=== PATIENT | male | born 1975 | race Caucasian/White ===

== ENCOUNTER 2019-05-19 10:07 | Inpatient (IN) | payer OTHER ==
--- NOTE | 2019-05-19 10:16 | PDOC ---
History of Present Illness - General Chief Complaint: Chest Pain Stated Complaint: CHEST PAIN Time Seen by Provider: 05/19/19 10:14 - History of Present Illness Initial Comments: 05/19/19 10:30 Pt is a 43 y/o M with a significant PMH of HTN, CAD (s/p 1 stent), HLD who presents to our E.D at the behest of his Manager Interventional. Pt endorses he has been experiencing chest pain since this past . Chest pain arose suddenly as is described as sharp, 6/10 in severity, and intermittent. Pt was not exerting himself at time of onset. Pain radiates to his back. Pt endorses he took an extra Ranexa for the pain; this did not mitigate his symptoms. Denies headache, blurry vision, nausea/vomiting, shortness of breath, numbness or tingling. Past History - Past Medical History Allergies/Adverse Reactions: Allergies Allergy/AdvReac Type Severity Reaction Status Date / Time No Known Drug Allergies Allergy Verified 05/19/19 10:12 Home Medications: Ambulatory Orders Ranolazine [Ranexa -] 1,000 mg PO BID #0 tab 04/23/13 Atorvastatin Ca [Lipitor] 20 mg PO HS 07/30/13 Metoprolol Succinate [Toprol XL -] 50 mg PO DAILY 07/30/13 Aspirin [ASA -] 81 mg PO DAILY 06/01/14 Sulfamethoxazole/Trimethoprim [Bactrim *Ds*] 1 tab PO BID #14 tablet 08/23/15 Cardiac Disorders: Yes ([place] 2011, STENT S, CAD) COPD: No HTN: Yes Hypercholesterolemia: Yes - Surgical History Cardiac Surgery: Yes (Stents) - Immunization History Immunization Up to Date: Yes - Psycho Social/Smoking Cessation Hx Smoking Status: Yes Smoking History: Current every day smoker Have you smoked in the past 12 months: Yes Number of Cigarettes Smoked Daily: 8 If you are a former smoker, when did you quit?: 2012 Cigars Per Day: 0 Information on smoking cessation initiated: No 'Breaking Loose' booklet given: 04/22/13 Hx Alcohol Use: No Drug/Substance Use Hx: No Substance Use Type: None Hx Substance Use Treatment: No *Physical Exam - Vital Signs Last Vital Signs Temp Pulse Resp BP Pulse Ox 98.3 F 74 18 156/100 99 05/19/19 10:13 05/19/19 10:13 05/19/19 10:13 05/19/19 10:13 05/19/19 10:13 Heart Score/ECG Review - History History: Slightly suspicious - Electrocardiogram EKG: Normal - Age Age: </= 45 - Risk Factors Risk Factors Heart Score: Yes Hx Hypercholesterolemia, Yes Hx Hypertension, Yes Smoking History, No Positive family hx of cardiac disease, Yes Hx Obesity Based on the list above the patient has:: >/=3 risk factors or Hx atherosclerotic disease - ECG Impressions Comment:: 05/19/19 10:18 nl sinus rythm, nl intervals, rate 73, QTc 436, no ST-T wave abnormalities. ED Treatment Course - LABORATORY CBC & Chemistry Diagram: 05/19/19 10:19 05/19/19 10:19 - ADDITIONAL ORDERS Additional order review: Laboratory Results 05/19/19 05/19/19 10:19 10:19 PT with INR 10.90 INR 0.92 PTT (Actin FS) 34.4 Sodium 136 Potassium 4.6 Chloride 105 Carbon Dioxide 27 Anion Gap 4 L BUN 15.5 Creatinine 0.9 Est GFR (CKD-EPI)AfAm 119.13 Est GFR (CKD-EPI)NonAf 102.79 Random Glucose 97 Calcium 9.7 Total Bilirubin 0.7 AST 26 ALT 41 Alkaline Phosphatase 61 Creatine Kinase 141 Troponin I < 0.02 Total Protein 7.4 Albumin 4.2 Lipase 178 05/19/19 10:19 RBC 6.03 H MCV 84.4 MCHC 34.2 RDW 12.6 MPV 7.7 Neutrophils % 55.7 Lymphocytes % 29.7 Monocytes % 5.9 Eosinophils % 8.1 H D Basophils % 0.6 - RADIOLOGY Radiology Studies Ordered: Category Date Time Status CHEST X-RAY PORTABLE* [RAD] Stat Radiology 05/19/19 10:29 Completed Medical Decision Making - Medical Decision Making 05/19/19 10:27 DDx includes bot not limited to stable angina, M.I, GERD, Aortic Dissection, pancreatitis Will order cbc, cardiac profile, cmp, lipase, cxr 05/19/19 12:26 Pt admitted to tele obs. Discharge - Follow up/Referral Referrals: Joshua Benjamin MD [Primary Care Provider] - - Patient Discharge Instructions - Post Discharge Activity
[2019-05-19 10:39] LABS: BASO % 0.6 % (0-2.0); EOS % 8.1 % (0-4.5); HEMATOCRIT 50.9 % (35.4-49); HEMOGLOBIN 17.4 GM/dL (11.7-16.9); LYMPH % 29.7 % (8-40); MCH 28.8 pg (25.7-33.7); MCHC 34.2 g/dl (32.0-35.9); MEAN CELL VOLUME 84.4 fl (80-96); MEAN PLT VOLUME 7.7 fl (7.5-11.1); MONO % 5.9 % (3.8-10.2); NEUT % 55.7 % (42.8-82.8); PLATELET COUNT 273 K/MM3 (134-434); RBC 6.03 M/mm3 (4.00-5.60); RDW 12.6 % (11.9-15.9)
--- NOTE | 2019-05-19 10:39 | CON.CARD ---
Consult Consult Specialty:: Cardiology Referred by:: Dr. Benjamin Reason for Consultation:: chest pain - History of Present Illness Chief Complaint: chest pain History of Present Illness: 43year old man with a history of HTN, HLD, CAD s/p [place] 05/2012 s/p VALORIE Pastrana ( [place]), cardiac cath 08/2014 showed patent RCA stent and non-obstructive mLAD disease, pt with chronicintermittentatypical chest pain,anxiety, L arm numbness. Pt came in today for evaluation of chest pain. States he has had chest pain on and off for the past 3 days. He went to his PMD's office yesterday and saw the SEISMOGRAPH SUPERVISOR or PA and was told his EKG looked different than in the past and that he should go to the ER. He decided not to go to the ER and attempted to go to work today but was told he could not work and must be evaluated further as he was still having chest pain. In the office today states he is still having left sided chest pain although not as severe as previously. States he is under a lot of stress recently at home and feels this is playing a role. - History Source History Provided By: Patient, Medical Record Limitations to Obtaining History: No Limitations - Past Medical History Cardio/Vascular: Yes: CAD, HTN, Hyperlipdemia, [place] - Past Surgical History Past Surgical History: Yes: Stent - Alcohol/Substance Use Hx Alcohol Use: No - Smoking History Smoking history: Current every day smoker Have you smoked in the past 12 months: Yes Aproximately how many cigarettes per day: 8 If you are a former smoker, when did you quit?: 2012 - Social History ADL: Independent History of Recent Travel: No Home Medications - Allergies Allergies/Adverse Reactions: Allergies Allergy/AdvReac Type Severity Reaction Status Date / Time No Known Drug Allergies Allergy Verified 05/19/19 10:12 - Home Medications Home Medications: Ambulatory Orders Ranolazine [Ranexa -] 1,000 mg PO BID #0 tab 04/23/13 Atorvastatin Ca [Lipitor] 20 mg PO HS 07/30/13 Metoprolol Succinate [Toprol XL -] 50 mg PO DAILY 07/30/13 Aspirin [ASA -] 81 mg PO DAILY 06/01/14 Sulfamethoxazole/Trimethoprim [Bactrim *Ds*] 1 tab PO BID #14 tablet 08/23/15 Review of Systems - Review of Systems Constitutional: denies: No Symptoms, Chills, Diaphoresis, Fever, Lethargy, Loss of Appetite, Malaise, Night Sweats, Unintentional Wgt. Loss, Weakness, Other Eyes: denies: No Symptoms, Blind Spots, Blurred Vision, Double Vision, Eye Pain , Floaters, Photophobia, Recent Change in Vision, Other HENT: denies: No Symptoms, Difficult Swallowing, Ear Discharge, Ear Pain, Epistaxis, Gingival Bleeding, Hearing Loss, Mouth Swelling, Nasal Congestion, Ocular Prosthesis, Throat Pain, Toothache, Ringing in Ears, Other Neck: denies: No Symptoms, Decreased ROM, Lumps, Pain on Movement, Stiffness, Swollen Glands, Tenderness, Other Cardiovascular: reports: Chest Pain. denies: No Symptoms, Edema, Palpitations, Shortness of Breath, Other Respiratory: denies: No Symptoms, Cough, Exercise Intolerance, Hemoptysis, Orthopnea, PND, Snoring, SOB, SOB on Exertion, Wheezing, Other Gastrointestinal: denies: No Symptoms, Abdominal Pain, Bloating, Constipation, Diarrhea, Dysphagia, Indigestion, Melena, Nausea, Rectal Bleeding, Vomiting, Vomiting Blood, Other Genitourinary: denies: No Symptoms, Burning, Discharge, Dysuria, Flank Pain, Frequency, Hematuria, Incontinence, Lesions, Menses, Pain, Testicular Mass, Testicular Pain, Testicular Swelling, Urgency, Vaginal Bleeding, Other Breasts: denies: No Symptoms Reported, See HPI, Breast Implants, Discharge from Nipple, Lumps, Pain, Skin Changes, Other Musculoskeletal: denies: No Symptoms, Back Pain, Crepitus, Decreased ROM, Extremity Pain, Joint Pain, Joint Swelling, Muscle Pain, Muscle Cramps, Muscle Weakness, Other Integumentary: denies: No Symptoms, Blister, Bruising, Change in Color, Eczema, Erythema, Incision, Lesions, Lump, Pallor, Pruritis, Rash, Wound, Other Neurological: denies: No Symptoms, Change in LOC, Change in Speech, Confusion, Dizziness, Headache, Incoordination, Numbness, Parasthesia, Pre-Existing Deficit , Seizure, Syncope, Tremors, Unsteady Gait, Weakness, Other Endocrine: denies: No Symptoms, Excessive Sweating, Flushing, Increased Hunger, Increased Thirst, Intolerance to Cold, Intolerance to Heat, Unexplained Weight Gain, Unexplained Weight Loss, Other Hematology/Lymphatic: denies: No Symptoms, Easily Bruised, Excessive Bleeding, Swollen Glands, Other Psychiatric: denies: No Symptoms, Altered Sleep Pattern, Anxiety, Depression, Hallucinations, Panic, Paranoia, Suicidal, Other - Risk Factors Known Risk Factors: Yes: Hypercholesterolemia, Hypertension, Prior [place] /Emb Stroke Vital Signs: Vital Signs Temperature 98.3 F 05/19/19 10:13 Pulse Rate 74 05/19/19 10:13 Respiratory Rate 18 05/19/19 10:13 Blood Pressure 156/100 05/19/19 10:13 O2 Sat by Pulse Oximetry (%) 99 05/19/19 10:13 Constitutional: Yes: No Distress, Calm Eyes: Yes: Conjunctiva Clear, EOM Intact HENT: Yes: Atraumatic, Normocephalic Neck: Yes: Supple, Trachea Midline Respiratory: Yes: Regular, CTA Bilaterally. No: Rales, Rhonchi, SOB, Wheezes Gastrointestinal: Yes: Normal Bowel Sounds, Soft. No: Distention, Tenderness Cardiovascular: Yes: Regular Rate and Rhythm. No: Bradycardia, Tachycardia, Pulse Irregular, Gallop, Rub, Varicosities JVD: No Carotid Bruit: No PMI: Non-Displaced Heart Sounds: Yes: S1, S2. No: Split S2, S3, S4, Clicks, Gallop, Rub, Bruit Murmur: No: Systolic Murmur, Diastolic Murmur Musculoskeletal: Yes: WNL Extremities: Yes: WNL Edema: No Peripheral Pulses WNL: Yes Peripheral Pulses: 2+ Left Doralis Pedis, 2+ Right Dorsalis Pedis Neurological: Yes: Alert, Oriented Psychiatric: Yes: Alert, Oriented - Other Data pending Echo: Pending Imaging - Results EKG: Report Reviewed, Image Reviewed Other: Report Reviewed, Image Reviewed Assessment/Plan Chest pain -check ekg, cardiac enzymes -echo and plan for nuclear stress tests if cardiac enzymes wnl CAD-h/o [place] 2011 s/p PCI with VALORIE RCA -repeat cath 2014 for atypical symptoms showed no sig progression of disease -cont ASA 81mg daily, statin, metoprolol -cont ranexa if needed for anti-anginal therapy
[2019-05-19 10:53] LABS: INR 0.92 (0.83-1.09); PROTHROMBIN TIME (PATIENT) 10.9 SEC (9.7-13.0)
[2019-05-19 10:55] LABS: ACTIVATED PTT 34.4 SECONDS (25.2-36.5)
[2019-05-19 11:32] LABS: ALBUMIN 4.2 g/dl (3.4-5.0); ALK PHOS 61 U/L (45-117); ANION GAP 4 MMOL/L (8-16); BILIRUBIN,TOTAL 0.7 mg/dL (0.2-1); BLOOD UREA NITROGEN 15.5 mg/dL (7-18); CALCIUM 9.7 mg/dL (8.5-10.1); CHLORIDE 105 mmol/L (98-107); CO2 27 mmol/L (21-32); CREATININE 0.9 mg/dL (0.55-1.3); GLUCOSE,RANDOM 97 mg/dL (74-106); LIPASE 178 U/L (73-393); POTASSIUM 4.6 mmol/L (3.5-5.1); SGOT/AST 26 U/L (15-37); SGPT/ALT 41 U/L (13-61); SODIUM 136 mmol/L (136-145); TOT PROT 7.4 g/dl (6.4-8.2)
--- NOTE | 2019-05-19 12:33 | ECHO ---
Version: 1 Name: ELSA FAIRBANKS Exam: Adult Echocardiogram Study Date: 05/19/2019, 11:00 AM Age: 43 Years MMode/2D Measurements & Calculations IVSd: 0.88 cm LVIDs: 3.3 cm LVIDd: 5.2 cm LVPWd: 0.92 cm ACS: 1.87 cm Ao root diam: 3.5 cm LA dimension: 3.0 cm Doppler Measurements & Calculations MV E max fernando: 70.3 cm/sec Med E/e': 11.2 MV A max fernando: 77.4 cm/sec Med Peak E' Fernando: 6.3 cm/sec MV E/A: 0.91 Lat E/e': 7.8 Lat Peak E' Fernando: 9.0 cm/sec Ao max P.5 mmHg Ao V2 max: 94.1 cm/sec Left Ventricle There is mild concentric left ventricular hypertrophy. Left ventricular systolic function is normal. Ejection Fraction = 55-60%. The transmitral spectral Doppler flow pattern is normal for age. Right Ventricle The right ventricle is normal in size and function. Atria Normal left and right atrial size and function. Mitral Valve There is mild mitral annular calcification. Tricuspid Valve The tricuspid valve is normal in structure and function. There was insufficient TR detected to calcu late RV systolic pressure. Aortic Valve The aortic valve is normal in structure and function. Pulmonic Valve The pulmonic valve is not well seen, but is grossly normal. Great Vessels The aortic root is normal size. Pericardium/Pleura There is no pericardial effusion. Summary Statements There is mild concentric left ventricular hypertrophy. Left ventricular systolic function is normal. Ejection Fraction = 55-60%. The right ventricle is normal in size and function. Normal left and right atrial size and function. The aortic valve is normal in structure and function. There is mild mitral annular calcification. MD Yvonne Peters05/19/2019, 12:33 PM Ordering Physician: Natanael Echols Performed By: Meghann Garsia
--- NOTE | 2019-05-19 12:36 | PDOC ---
Documentation entered by Desirae Knott SCRIBE, acting as scribe for Luis Bautista MD. Luis Bautista MD: This documentation has been prepared by the juan, Desirae Knott SCRIBE, under my direction and personally reviewed by me in its entirety. I confirm that the documentation accurately reflects all work, treatment, procedures, and medical decision making performed by me. Attending Attestation - Resident Resident Name: Rayshawn Machuca - ED Attending Attestation I have performed the following: I have examined & evaluated the patient, The case was reviewed & discussed with the resident, I agree w/resident's findings & plan, Exceptions are as noted - HPI HPI: 05/19/19 10:48 The patient is a 43 year old male with a significant PMH of HTN, HLD, CAD s/p [place] 05/2012 s/p VALORIE dRCA ([place]), cardiac cath 08/2014 who presents to the emergency department advised by marketing information manager for chest pain x5days, patient notes his chest pain is intermittent, stabbing in the left side, the last episode of chest pain was on Saturday. The patient describes his CP as nonradiating, sharp, intermittent, 6/10, radiating to his back. There is no worsening on exertion . pt notes he took an extra Ranexa, with no relief of symptoms. Patient denies any alleviating or exacerbating factors. The patient denies shortness of breath, headache and dizziness. Denies fever, chills, cough, nausea, vomiting, diarrhea and constipation. Denies dysuria, frequency, urgency and hematuria. Allergies: NKDA Elevator Operator Freight: Dr. Echols PMD: Vadim - Physicial Exam PE: 05/19/19 10:49 GENERAL: The patient is awake, alert, and fully oriented, Nontoxic - in no acute distress. HEAD: Normocephalic, atraumatic. EYES: extraocular movements intact, sclera anicteric, conjunctiva clear. ENT: Normal voice, Moist mucous membranes. NECK: Normal range of motion, supple without lymphadenopathy, JVD, or masses. LUNGS: Breath sounds equal, clear to auscultation bilaterally. No wheezes, no crackles, no rales. HEART: Regular rate and rhythm, normal S1 and S2 without murmur, rub or gallop. ABDOMEN: Soft, nontender, normoactive bowel sounds. No guarding, no rebound. No masses. EXTREMITIES: Normal range of motion, no edema. No clubbing or cyanosis. No cords, erythema, or tenderness. NEUROLOGICAL: No facial asymmetry, Normal speech, normal gait. PSYCH: Normal mood, normal affect. SKIN: Warm, Dry, normal turgor, no rashes or lesions noted. - Medical Decision Making 05/19/19 14:03 43-year-old gentleman history of CAD status post PCI with 1 stent presenting with atypical chest pain. Last episode episode of chest pain was on Saturday patient is currently asymptomatic. Syndrome by PMD for further evaluation/risk stratification EKG unremarkable here without signs of [place] Heart Score/ECG Review - ECG Impressions Comment:: 05/19/19 14:29 Twelve-lead EKG was performed and reviewed by me. There is normal sinus rhythm with a normal rate. Rate of 73 The axis is normal. The intervals are normal. There is normal R wave progression There are no ST or T wave abnormalities. Impression: Normal twelve-lead EKG
--- NOTE | 2019-05-19 13:21 | EKG ---
Test Reason : Blood Pressure : / mmHG Vent. Rate : 073 BPM Atrial Rate : 073 BPM P-R Int : 166 ms QRS Dur : 106 ms QT Int : 396 ms P-R-T Axes : 061 -27 029 degrees QTc Int : 436 ms POOR DATA QUALITY, INTERPRETATION MAY BE ADVERSELY AFFECTED NORMAL SINUS RHYTHM NORMAL ECG WHEN COMPARED WITH ECG OF 17-MAY-2015 09:54, NO SIGNIFICANT CHANGE WAS FOUND Confirmed by Genaro Darden ([id number]) on 05/19/2019 1:21:06 PM Referred By: Confirmed By:Genaro Darden
--- NOTE | 2019-05-19 15:41 | HP ---
Admitting History and Physical - Primary Care Physician PCP: Joshua Benjamin - Admission Chief Complaint: Chest pain History of Present Illness: Patient is a 43 y/o male with past medical history of HTN, HLD, CAD s/p [place] 2011. Patient presented to ER with complaints of chest pain. He was seen in PCP offiice yesterday for chest pain and instructed by FRUIT HARVESTER to come to ER due to EKG changes. Patient decided to go home because he was not experiencing chest pain and went to work this morning and instructed by job to come to ER for evaluation before returning to work. On examination patient complain of intermittent L sided chest pain, denies SOB or dizziness. History Source: Patient Limitations to Obtaining History: No Limitations - Past Medical History Cardiovascular: Yes: CAD, HTN, Hyperlipdemia, [place] - Past Surgical History Past Surgical History: Yes: Stent - Smoking History Smoking history: Current every day smoker Have you smoked in the past 12 months: Yes Aproximately how many cigarettes per day: 8 If you are a former smoker, when did you quit?: 2012 - Alcohol/Substance Use Hx Alcohol Use: No - Social History ADL: Independent History of Recent Travel: No Home Medications - Allergies Allergies/Adverse Reactions: Allergies Allergy/AdvReac Type Severity Reaction Status Date / Time No Known Drug Allergies Allergy Verified 05/19/19 10:12 - Home Medications Home Medications: Ambulatory Orders Ranolazine [Ranexa -] 1,000 mg PO BID #0 tab 04/23/13 Atorvastatin Ca [Lipitor] 20 mg PO HS 07/30/13 Metoprolol Succinate [Toprol XL -] 50 mg PO DAILY 07/30/13 Aspirin [ASA -] 81 mg PO DAILY 06/01/14 Review of Systems - Review of Systems Constitutional: reports: No Symptoms Eyes: reports: No Symptoms HENT: reports: No Symptoms Neck: reports: No Symptoms Cardiovascular: reports: Chest Pain Respiratory: reports: No Symptoms Gastrointestinal: reports: No Symptoms Genitourinary: reports: No Symptoms Breasts: reports: No Symptoms Reported Musculoskeletal: reports: No Symptoms Integumentary: reports: No Symptoms Neurological: reports: No Symptoms Endocrine: reports: No Symptoms Hematology/Lymphatic: reports: No Symptoms Psychiatric: reports: No Symptoms Physical Examination Vital Signs: Vital Signs Temperature 98.3 F 05/19/19 10:13 Pulse Rate 74 05/19/19 10:13 Respiratory Rate 18 05/19/19 10:13 Blood Pressure 156/100 05/19/19 10:13 O2 Sat by Pulse Oximetry (%) 99 05/19/19 10:13 Constitutional: Yes: No Distress, Calm Eyes: Yes: Conjunctiva Clear HENT: Yes: Atraumatic Neck: Yes: Supple Cardiovascular: Yes: Regular Rate and Rhythm Respiratory: Yes: Regular, CTA Bilaterally Gastrointestinal: Yes: Normal Bowel Sounds, Soft Musculoskeletal: Yes: WNL Extremities: Yes: WNL Edema: No Neurological: Yes: Alert, Oriented Psychiatric: Yes: Alert, Oriented Labs: CBC, BMP 05/19/19 10:19 05/19/19 10:19 Imaging - Results Other: Report Reviewed (stress test) Problem List - Problems (1) Chest pain Assessment/Plan: -Cardiology on board -Nuclear stress test done and shows ABNORMAL MYOCARDIAL PERFUSION MODERATE SIZE AND SEVERITY REVERSIBLE DEFECT OF BASAL INFERIOR WALL -tele monitoring -trop neg x 2 -spoke with Dr Echols from Cardiology and patient will be transferred to [facility] for cardiac cath -Nitro SL prn Code(s): R07.9 - CHEST PAIN, UNSPECIFIED (2) CAD (coronary artery disease) Assessment/Plan: -Aspirin on hold for possible cardiac cath in AM Code(s): I25.10 - ATHSCL HEART DISEASE OF [place] CORONARY ARTERY W/O ANG PCTRS (3) History of coronary artery stent placement Assessment/Plan: -Cardiology on board Code(s): Z95.5 - PRESENCE OF CORONARY ANGIOPLASTY IMPLANT AND GRAFT (4) Hyperlipidemia Assessment/Plan: -Atorvastatin Code(s): E78.5 - HYPERLIPIDEMIA, UNSPECIFIED (5) Hypertension Assessment/Plan: -Metoprolol -low Na diet Code(s): I10 - ESSENTIAL (PRIMARY) HYPERTENSION Assessment/Plan see problem list SCDs
[2019-05-19] MEDS ORDERED: NITROGLYCERIN SUBLINGUAL 1/150 0.4 MG TAB SL PRN (16:52)
--- NOTE | 2019-05-19 18:20 | DS ---
Physical Examination Vital Signs: Vital Signs Temperature 98.3 F 05/19/19 16:51 Pulse Rate 80 05/19/19 16:51 Respiratory Rate 18 05/19/19 16:51 Blood Pressure 141/95 05/19/19 16:51 O2 Sat by Pulse Oximetry (%) 99 05/19/19 10:13 Findings/Remarks: Laboratory Results - last 24 hr 05/19/19 05/19/19 05/19/19 10:19 10:19 10:19 WBC 10.0 RBC 6.03 H Hgb 17.4 H Hct 50.9 H MCV 84.4 MCH 28.8 MCHC 34.2 RDW 12.6 Plt Count 273 MPV 7.7 Absolute Neuts (auto) 5.5 Neutrophils % 55.7 Lymphocytes % 29.7 Monocytes % 5.9 Eosinophils % 8.1 H D Basophils % 0.6 Nucleated RBC % 0 PT with INR 10.90 INR 0.92 PTT (Actin FS) 34.4 Sodium 136 Potassium 4.6 Chloride 105 Carbon Dioxide 27 Anion Gap 4 L BUN 15.5 Creatinine 0.9 Est GFR (CKD-EPI)AfAm 119.13 Est GFR (CKD-EPI)NonAf 102.79 Random Glucose 97 Calcium 9.7 Total Bilirubin 0.7 AST 26 ALT 41 Alkaline Phosphatase 61 Creatine Kinase 141 Troponin I < 0.02 Total Protein 7.4 Albumin 4.2 Lipase 178 05/19/19 16:34 WBC RBC Hgb Hct MCV MCH MCHC RDW Plt Count MPV Absolute Neuts (auto) Neutrophils % Lymphocytes % Monocytes % Eosinophils % Basophils % Nucleated RBC % PT with INR INR PTT (Actin FS) Sodium Potassium Chloride Carbon Dioxide Anion Gap BUN Creatinine Est GFR (CKD-EPI)AfAm Est GFR (CKD-EPI)NonAf Random Glucose Calcium Total Bilirubin AST ALT Alkaline Phosphatase Creatine Kinase 122 Troponin I < 0.02 Total Protein Albumin Lipase Active Medications Generic Name Dose Route Start Last Admin Trade Name Freq PRN Reason Stop Dose Admin Atorvastatin Calcium 20 mg 05/19/19 22:00 Lipitor - PO HS BLANCA Metoprolol Succinate 50 mg 05/20/19 10:00 Toprol Xl - PO DAILY BLANCA Nitroglycerin 0.4 mg 05/19/19 16:52 Nitrostat - SL Q5M PRN FOR CHEST PAIN Constitutional: Yes: No Distress, Calm Eyes: Yes: Conjunctiva Clear HENT: Yes: Atraumatic Cardiovascular: Yes: Regular Rate and Rhythm Respiratory: Yes: Regular, CTA Bilaterally Gastrointestinal: Yes: Normal Bowel Sounds, Soft Musculoskeletal: Yes: WNL Extremities: Yes: WNL Edema: No Neurological: Yes: Alert, Oriented Psychiatric: Yes: Alert, Oriented Labs: CBC, BMP 05/19/19 10:19 05/19/19 10:19 Discharge Summary Problems reviewed: Yes Reason For Visit: CHEST PAIN Hospital Course: Patient is a 43 y/o male with past medical history of HTN, HLD, CAD s/p [place] 2011. Patient presented to ER with complaints of chest pain. He was seen in PCP offiice yesterday for chest pain and instructed by AIR ANALYSIS ENGINEERING TECHNICIAN to come to ER due to EKG changes. Patient decided to go home because he was not experiencing chest pain and went to work this morning and instructed by job to come to ER for evaluation before returning to work. On examination patient complain of intermittent L sided chest pain, denies SOB or dizziness. Patient Nuclear Stress Test shows abnormal myocardial perfusion moderate size and severity reversible defect of basal inferior wall. Lab work shows negative troponin. Patient will be transferred to [facility] for cardiac cath. Condition: Guarded - Instructions Referrals: Joshua Benjamin MD [Primary Care Provider] - Disposition: TRANSFER ACUTE CARE/OTHER HOSP - Home Medications Comprehensive Discharge Medication List: Ambulatory Orders Ranolazine [Ranexa -] 1,000 mg PO BID #0 tab 04/23/13 Atorvastatin Ca [Lipitor] 20 mg PO HS 07/30/13 Metoprolol Succinate [Toprol XL -] 50 mg PO DAILY 07/30/13 Aspirin [ASA -] 81 mg PO DAILY 06/01/14
[2019-05-19] MEDS ORDERED: ATORVASTATIN CA 20 MG TABLET (FP) PO SCH (22:00)
[2019-05-20 00:44] VITALS: BMI 31.5
[2019-05-20] MEDS ORDERED: PNEUMOC 13-VAL CONJ-DIP CRM/PF 0.5 ML DISP.SYRIN IM ONE (00:44)
[2019-05-20 07:12] LABS: BASO % 0.5 % (0-2.0); HEMATOCRIT 49.2 % (35.4-49); LYMPH % 34.4 % (8-40); MCH 29.1 pg (25.7-33.7); MCHC 34.6 g/dl (32.0-35.9); MEAN CELL VOLUME 84.2 fl (80-96); MEAN PLT VOLUME 7.7 fl (7.5-11.1); MONO % 6.1 % (3.8-10.2); PLATELET COUNT 255 K/MM3 (134-434); RBC 5.84 M/mm3 (4.00-5.60); RDW 12.8 % (11.9-15.9); WHITE BLOOD COUNT 10.9 K/mm3 (4.0-10.0)
[2019-05-20 07:38] LABS: ALBUMIN 3.9 g/dl (3.4-5.0); ALK PHOS 56 U/L (45-117); ANION GAP 5 MMOL/L (8-16); BILIRUBIN,TOTAL 0.6 mg/dL (0.2-1); BLOOD UREA NITROGEN 18.5 mg/dL (7-18); CALCIUM 9.1 mg/dL (8.5-10.1); CHLORIDE 107 mmol/L (98-107); CHOLESTEROL 198 mg/dL (50-200); CO2 26 mmol/L (21-32); CREATININE 0.9 mg/dL (0.55-1.3); GLUCOSE,RANDOM 98 mg/dL (74-106); HDL CHOLESTEROL 42 mg/dL (40-60); LDL CHOLESTEROL (ONLY SJRH) 125 mg/dL (5-100); MAGNESIUM 2.1 mg/dL (1.8-2.4); POTASSIUM 4.1 mmol/L (3.5-5.1); SGOT/AST 24 U/L (15-37); SGPT/ALT 47 U/L (13-61); SODIUM 138 mmol/L (136-145); TOT PROT 6.7 g/dl (6.4-8.2); TRIGLYCERIDES 190 mg/dL (0-150)
[2019-05-20] MEDS ORDERED: FLU VACCINE QUAD 60 MCG/0.5 ML (MDV 19-20) IM ONE (10:00)
[2019-05-20] MEDS ORDERED: PNEUMOCOCCAL 23 VACCINE 0.5 ML VIAL IM ONE (10:00)
[2019-05-20 12:09] VITALS: BP 126/94; PULSE 76; TEMP 98.4
== END 2019-05-20 12:09 | disposition short-term general hospital (02) | DRG 313 ==
LOC: JER 10:07 → JERBED 10:55 → J4W 20:46
PROVIDERS: ADMIT Family Medicine; ATTEND Family Medicine
DX: R07.89 Other chest pain (principal); I25.10 Atherosclerotic heart disease of native coronary artery without angina pectoris; I10 Essential (primary) hypertension; F17.210 Nicotine dependence, cigarettes, uncomplicated; E78.5 Hyperlipidemia, unspecified; F41.9 Anxiety disorder, unspecified; I25.2 Old myocardial infarction; Z95.5 Presence of coronary angioplasty implant and graft
CPT/HCPCS: 36415; 71045-TC-FY; 78452-TC; 80053; 80061; 82550; 83690; 83721; 83735; 84484; 85025; 85610; 85730; 93005; 93010; 93017; 93306-TC; 99284-25; A9502